=== PATIENT | male | born 1935 | race Caucasian/White ===

== ENCOUNTER 2024-11-13 15:39 | Observation (INO) | payer MEDICARE, SELFPAY ==
[2024-11-13] VITALS (11 sets, daily range): BP systolic 142–193; BP diastolic 71–101; BMI 23.3
[2024-11-13 09:57] LABS: ALT (SGPT) 18 U/L (0-50); AST (SGOT) 24 U/L (17-59); Albumin 4.9 g/dl (3.5-5.0); Alkaline Phosphatase 77 U/L (38-126); Blood Urea Nitrogen 13 mg/dl (9-20); Calcium 9.5 mg/dl (8.4-10.2); Carbon Dioxide 26 mmol/L (22-30); Chloride 98 mmol/L (98-107); Glucose 110 mg/dl (70-99); Potassium 4.1 mmol/L (3.5-5.1); Sodium 137 mmol/L (135-145); Total Bilirubin 0.6 mg/dl (0.2-1.3); Total Protein 7.7 g/dl (6.3-8.2); eGFR > 60.00
[2024-11-13 09:58] LABS: % Basophils 0.5 % (0-2); % Eosinophils 2.9 % (0-6); % Immature Granulocytes 0.4 % (0-0.5); % Lymphocytes 23.9 % (20.5-51.1); % Monocytes 12.4 % (1.7-9.3); % Neutrophils 59.9 % (42.2-75.2); Absolute Eosinophils 0.2 10^3/uL (0-0.7); Absolute Lymphocytes 1.3 10^3/uL (1.2-3.4); Absolute Monocytes 0.7 10^3/uL (0.1-0.6); Absolute Neutrophils 3.3 10^3/uL (1.4-6.5); Hematocrit 41.3 % (39.0-52.0); Hemoglobin 14.3 g/dL (13.0-18.0); Mean Corp Hgb Conc. 34.6 g/dL (33.0-37.0); Mean Corpuscular Hgb 32.8 pg (27.0-31.0); Mean Corpuscular Volume 94.7 fL (80.0-94.0); Mean Platelet Volume 8.4 fL (7.4-10.4); Nucleated Red Blood Cells % 0 % (-); Platelet Count 186 10^3/uL (130-400); Red Blood Cell Count 4.36 10^6/uL (4.70-6.10); Red Cell Dist. Width 12.2 % (11.5-14.5); White Blood Cell Count 5.5 10^3/uL (4.8-10.8)
--- NOTE | 2024-11-13 10:13 | ED.CVA ---
History of Present Illness
General
Chief Complaint: CVA/TIA Symptoms
Source: patient
Time Seen by Provider: 11/13/24 09:59
Onset of Stroke Symptoms
Onset of symptoms known: Yes
Date of onset of symptoms: 11/13/24
Time of onset of symptoms: 07:45
History of Present Illness
History of Present Illness:
89-year-old male presents to the emergency room complaining of having about a 5 to 10-minute episode of right arm weakness, tingling and slurred speech. Patient is receiving physical therapy at [facility] after having a left shoulder replacement
surgery. When he recognized something was not right he went to the nurse who documented that he had slurred speech. Patient feels like his symptoms have resolved. No history of similar. Patient does take a baby aspirin a day. He denies headache.
Phy Exam
Physical Exam
Physical Exam:
General: Awake, Alert, Oriented X3. No acute distress.
Vitals: unremarkable
Head: Atraumatic
Eyes: Pupils equal, EOMI
Throat: Airway intact, no exudates
Neck: Trachea midline
Lungs: Clear and equal b/l
Heart: Regular rate, no murmurs
Abd: Soft, Nontender, No pulsatile mass
Neuro: Cranial nerves intact, muscle strength equal bilaterally, cerebellar exam normal
Skin: Warm, dry, no rash
Extremities: pulses equal b/l, no edema
Course
Orders/Labs/Results
Orders:
Orders
11/13/24 09:36
Complete Blood Count/With Diff Urgent
Comprehensive Metabolic Panel Urgent
11/13/24 10:09
Electrocardiogram (*1) Stat
Reason for Study: Other
Other Reason for Exam: neuro symptoms
CT Head & Neck Angio W/wo IV Urgent
Comment:
Reason For Exam: episode of r arm weakness, slurred speech
EKG- Treatment ONCE
11/13/24 15:26
MRI Brain [MR Brain Without Contrast] Routine
Comment:
Reason For Exam: TIA
OK for patient to be off Cardiac Monitoring for MRI: No
Recent pill cam endoscopy?: No
11/13/24 15:34
Admit/Transfer Patient As Directed
Co-Sign Provider:
Level of Care: Observation services
Assign to:: Telemetry
Physician / Group: jorge
Diagnosis: TIA
Reason for Telemetry: CVA/TIA
Date to Stop Telemetry: 11/16/24
Time to Stop Telemetry: 11:00
11/13/24 15:35
Code Status As Directed
Resuscitation Status: Full Code
PRN Pain Medication Management As Directed
May give lesser potent ordered pain med per pt: Yes
preference::
Protocol:: Medication orders for pain may be administered in a
manner that supports deferring to patient preference
when the pt is:
- Requesting an ordered lesser potent pain medication.
Least to most potent pain medications are defined
as: acetaminophen < NSAID < tramadol < opioids
(morphine, oxycodone, hydromorphone).
- Requesting a lesser dose of the same medication IF
ORDERED.
- Requesting a less intrusive route of administration
if both routes are prescribed by the provider (PO <
IV).
11/16/24 11:00
DC Protocol for Telemetry ONCE
Abnormal Lab Results
11/13/24
09:36
RBC 4.36 L 10^6/uL
(4.70-6.10)
MCV 94.7 H fL
(80.0-94.0)
MCH 32.8 H pg
(27.0-31.0)
Absolute Monos (auto) 0.7 H 10^3/uL
(0.1-0.6)
Monocytes % 12.4 H %
(1.7-9.3)
Glucose 110 H mg/dl
(70-99)
11/13/24 09:36
11/13/24 09:36
Vital Signs
Initial and Last Documented VS:
Initial Vital Signs
Temp Pulse Resp BP Pulse Ox
97.9 F 94 16 146/85 98
11/13/24 09:24 11/13/24 09:24 11/13/24 09:24 11/13/24 09:24 11/13/24 09:24
Last Documented Vital Signs
Temp Pulse Resp BP Pulse Ox
97.9 F 78 19 193/85 93
11/13/24 09:24 11/13/24 14:45 11/13/24 14:45 11/13/24 14:00 11/13/24 13:15
MDM/Problems Addressed
Differential Diagnosis Includes:
TIA, CVA, seizure,
MDM/Problems Addressed:
Patient has a nonfocal neurologic exam here. NIH score 0. CVA workup initiated including CT CTA which are unremarkable. Neurology evaluation obtained. Allergy recommends hospitalization for MRI, blood pressure management
Chronic conditions affecting care: HTN
*Radiology
Radiology exam reviewed: radiology read reviewed
*Pulse Oximetry
Patient hypoxic: no
*EKG
Interpreted by ED Provider?: Yes
Interpretation: normal
Comparison EKG: no comparison EKG present
Heart Rate: 72
Rate: normal
Rhythm: sinus
[place]: normal axis
Interval: normal interval
QRS Pattern: normal QRS
Ischemia: no ischemia
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
Rate: normal
Interpretation: normal
Rhythm: sinus
*Critical Care Note
Total Time (30-74mins, 75-104mins- exclusive of procedures): Not Applicable
ED Attending Note
-
Portions of this chart may have been created with voice recognition software.� Occasional wrong word or��sound alike� substitutions may have occurred due to the inherent limitations of voice recognition software.
Discharge Plan
Departure
Patient Disposition: Admit
Date of Disposition: 11/13/24
Time of Disposition: 15:15
Admit to: Telemetry
Presentation/result/management discussed w/ accepting MD/DO: Hospitalist
Condition: Fair
Discharge Problem:
Brain TIA
Interventions
Interventions:
*Risk Screen - Suicide Last Done: 11/13/24 09:27
*General Assessment Last Done: 11/13/24 11:05
*Neglect/Abuse Screening Last Done: 11/13/24 09:27
ED- Fall Risk Assessment Last Done: 11/13/24 11:05
*ED COVID-19 Vaccine History Last Done: 11/13/24 11:05
ED- Pulmonary Assessment Last Done: 11/13/24 09:56
ED- Neurological Assessment Last Done: 11/13/24 09:56
ED- Cardiac Assessment Last Done: 11/13/24 09:56
ED Swallowing Screen Last Done: 11/13/24 11:37
--- NOTE | 2024-11-13 14:17 | CON.NEURO ---
Consultation
Order
Date of Consultation: 11/13/24
Requesting Provider: Imer Park DO
Reason for Consult: Stroke
Neurology Consultation Note.
HPI: This is an 89-year-old RH man who presented to [facility] on 11/13/2024 with transient motor and speech deficits. This morning, the patient experienced sudden inability to close his right hand and noted his voice was 'dreary' and
louder than usual. He denies difficulties with holding utensils or having slurred speech. The patient reports no associated headache, sensory or vision changes, or new balance issues. He denies any problems with his right leg.
EMS VS: Blood pressure 189/101, 93, glucose�176
ER VS: 146/85-193/85, 94, afebrile
EKG: NSR, QTc Int : 435 ms
PDMP: Oxycodone Hcl (Ir) 5 Mg28 tablets filled in on 09/20/2024
Oxycodone Hcl (Ir) 5 Mg
Labs: Glucose�110, normal sodium, creatinine, WBCs
CT head wo contrast-left vertebral artery 70% stenosis
CTA head/neck-14 mm soft tissue density in the upper portion of the right hilum, severe left vertebral artery stenosis
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
PSH: Left reverse shoulder arthroplasty
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
FH: Father�coronary artery disease,
All:NKDA
ROS: Constitutional: Negative. Negative for chills, fever and unexpected weight change.
HENT: Positive for hearing impairment
Eyes: Negative. Negative for photophobia, pain and visual disturbance.
Respiratory: Negative for cough, choking and shortness of breath.
Cardiovascular: Negative for chest pain, palpitations and leg swelling.
Gastrointestinal: Negative for abdominal pain and vomiting.
Endocrine: Negative. Negative for cold intolerance.
Genitourinary: Negative for dysuria, flank pain and urgency.
Musculoskeletal: Positive for arthralgias
Skin: Negative for rash.
Allergic/Immunologic: Negative. Negative for immunocompromised state.
Neurological: Positive for chronic imbalance, transient right hand weakness and dysphonia
General: Well developed. In no acute distress.
Cardio: Regular rate and rhythm without murmur. Extremities are without cyanosis or edema.
Neuro:
Mental Status: Alert, oriented to person, place, and date. Impaired attention and recall. Good fund of knowledge. Follows complex requests across the midline. Comprehension, naming, and repetition intact. Immediate and delayed recall 3/3.
Cranial Nerves: Pupils are equally round and reactive to light. EOMs full. Visual head full to confrontation. No ptosis. No nystagmus. V1-V3 intact to light touch and pinprick bilaterally, symmetric. Face symmetric. Poor hearing AU. The
palate elevated well. SCMs and traps 5/5. Tongue midline. No dysarthria.
Motor: Increased motor tone. No pronator or arm drift. Strength 5/5 throughout. No clonus.
Reflexes: Bilateral grasp
Sensory: Normal vibration at the ankles
Coordination: Reduced fine finger movements. No dysmetria or tremor.
Gait: deferred
Assessment and Plan:
I. TIA
II. Parkinsonism with autonomic dysfunction
III. Encephalopathy (vascular, neurodegenerative)
IV. Hilar adenopathy vs neoplasm
V. Severe left vertebral artery stenosis
-Continue Telemetry monitoring
-Fall precautions
-Cautious lowering of BP by approximately 15 % during the first 24 hours is SBP >220 mmHg or diastolic blood pressure >120 mmHg
-DAPT for 3 weeks
-Lipitor 40 mg nightly
-PT
-Brain MRI without ashley
-TTE
-DVT prophylaxis.
I personally reviewed all radiology and labs along with past medical records pertinent to current medical problems. Total time spent in patient care is 60 minutes.
Thank you for allowing us to participate in the care of this patient. We will continue to follow. Please do not hesitate to contact us with any questions or concerns.
Subjective/Objective
Subjective Data
Date of Service: November 13, 2024
Objective Data
Vital Signs
Temp Pulse Resp BP Pulse Ox
36.6 C 70 16 173/91 93
11/13/24 09:24 11/13/24 13:15 11/13/24 13:15 11/13/24 13:00 11/13/24 13:15
Lab Results
11/13/24 09:36
11/13/24 09:36
Sodium 137 mmol/L (135-145) 11/13/24 09:36
Potassium 4.1 mmol/L (3.5-5.1) 11/13/24 09:36
BUN 13 mg/dl (9-20) 11/13/24 09:36
Glucose 110 mg/dl (70-99) H 11/13/24 09:36
Calcium 9.5 mg/dl (8.4-10.2) 11/13/24 09:36
Patient Allergies
No Known Allergies Allergy (Unverified 03/02/16 15:10)
Vital Signs and Labs
-
Vital Signs and Labs:
Vital Signs
Temp Pulse Resp BP Pulse Ox
36.6 C 70 16 173/91 93
11/13/24 09:24 11/13/24 13:15 11/13/24 13:15 11/13/24 13:00 11/13/24 13:15
Lab Results
11/13/24 09:36
11/13/24 09:36
Sodium 137 mmol/L (135-145) 11/13/24 09:36
Potassium 4.1 mmol/L (3.5-5.1) 11/13/24 09:36
BUN 13 mg/dl (9-20) 11/13/24 09:36
Glucose 110 mg/dl (70-99) H 11/13/24 09:36
Calcium 9.5 mg/dl (8.4-10.2) 11/13/24:36
--- NOTE | 2024-11-13 15:13 | HPS.HSE ---
Family Physician
-
Family Physician: Angi Redd
Chief Complaint
-
Right arm weakness, slurred speech
History of Present Illness
89-year-old male with manage medical history for colon polyp, hemorrhoids, hypertension presents to the emergency room complaining of having about a 5 to 10-minute episode of right arm weakness, tingling and slurred speech. Patient is receiving
physical therapy at [facility] after having a left shoulder replacement surgery. Patient feels like his symptoms have resolved. Patient denied headache, dizziness. Patient denied blurry vision. Patient denied chest pain or short of breath.
Patient denied abdominal pain, nausea, vomiting or diarrhea. Patient denied dysuria hematuria.
His blood pressure medications were stopped in August due to hypotension.
Patient was noted hypotensive in ER. CT with impression of chest demonstrates a 14 mm soft tissue density in the upper portion of the right hilum which is only partially imaged on image 136 series 501. This may be adenopathy or neoplasm and, if
clinically indicated, could be further evaluated with contrast-enhanced CT of the chest.no evidence of major intracranial branch occlusion or significant intracranial stenosis.,Moderate partially calcific atherosclerotic plaque at both carotid
bifurcations is associated with less than 50% stenosis bilaterally. Small volume partially calcific atherosclerotic plaque at the cavernous and supraclinoid portions of both internal carotid arteries is not associated with significant stenosis.
There is large volume partially calcific atherosclerotic plaque at the intracranial portion of the left vertebral artery associated with greater than 70% stenosis. There is moderate diffuse cortical atrophy with mild-moderate nonspecific white
matter changes as described above.
Admitting for further manage
Medical History
Past Medical History
Past Medical History: Reports Other
Additional Past Medical History:
Hypertension
Colon polyps
Hemorrhoids
Past Surgical History: Reports Other
Additional Past Surgical History:
Hernia repair
Left shoulder replaced
Social History
Tobacco: Non-smoker
Alcohol: None
Drug: None
Living: Assisted Living
Family History
Family History: Not pertinent
Allergies / Home Medications
Allergies reflects when Allergies were last updated in [facility].
Home Medications with original date entered in [facility]
Allergy/Medication List:
Allergies
Allergy/AdvReac Type Severity Reaction Status Date / Time
No Known Allergies Allergy Unverified 03/02/16 15:10
Review of Systems
-
Constitutional: Reports No Symptoms
EENT: Reports No Symptoms
Respiratory: Reports No Symptoms
Cardiac: Reports No Symptoms
Abdomen/GI: Reports No Symptoms
: Reports No Symptoms
Musculoskeletal: Reports Other (decreased moment of left UE due to left shoulder surgery)
Skin: Reports No Symptoms
Neurological: Reports No Symptoms
Endocrine: Reports No Symptoms
Hematologic/Lymphatic: Reports No Symptoms
Psych: Reports No Symptoms
Physical Exam
Vital Signs
Vital Signs
Temp Pulse Resp BP Pulse Ox
97.9 F 78 19 193/85 93
11/13/24 09:24 11/13/24 14:45 11/13/24 14:45 11/13/24 14:00 11/13/24 13:15
Physical Exam
General: Well Developed, Well Nourished and No Apparent Distress
HEENT: NormoCephalic, Moist mucous membranes and Atraumatic
Respiratory: Clear
Cardiac: S1/S2 and Regular Rhythm; No Murmur or Rub
GI: Soft, Non Tender, Non Distended and Normal Bowel Sounds; No Organomegaly
Rectal: Deferred by Provider
Musculoskeletal: No Clubbing, No Cyanosis and Other (decreased ROM due to left shoulder replacement)
Skin: No Rash
Neuro: AO x 3 and Nonfocal/grossly intact
Psych: Calm
Laboratory Results
-
11/13/24 09:36
11/13/24 09:36
Laboratory Results
Total Bilirubin 0.6 mg/dl (0.2-1.3) 11/13/24 09:36
AST 24 U/L (17-59) 11/13/24 09:36
ALT 18 U/L (0-50) 11/13/24 09:36
Alkaline Phosphatase 77 U/L (38-126) 11/13/24 09:36
Data Reviewed
-
CT Scan: Report Reviewed by me
Lab Data: Labs Reviewed by me
Impression/Plan
-
# Hypertension emergency
-His blood pressure improved with labetalol
-Continue to monitor vital sign
# Slurred speech/right arm weakness concern for TIA
-MRI of the head
-Continue aspirin
-Statin continued
-Obtain A1c, lipid profile
-obtain MRI
-PT/OT consult
-neurology consulted
-CTA with the impression of 4 mm soft tissue density in the upper portion of the right hilum which is only partially imaged on image 136 series 501. This may be adenopathy or neoplasm and, if clinically indicated, could be further evaluated with
contrast-enhanced CT of the chest. moderate partially calcific atherosclerotic plaque at both carotid bifurcations is associated with less than 50% stenosis bilaterally.nmall volume partially calcific atherosclerotic plaque at the cavernous and
supraclinoid portions of both internal carotid arteries is not associated with significant stenosis. There is large volume partially calcific atherosclerotic plaque at the intracranial portion of the left vertebral artery associated with greater
than 70% stenosis. There is moderate diffuse cortical atrophy with mild-moderate nonspecific white matter changes as described above.
#soft tissue density in the upper portion of right hilum
-obtain CT in 24 hours.
# Hyperlipidemia
-Statin
# BPH
-Flomax continued
#recent left shoulder surgery
# DVT prophylaxis
-SCDs
# CODE STATUS
-Full code
--- NOTE | 2024-11-13 15:58 | W.PN.UPDATE ---
Update Note
Progress Note Update
This is an addendum to H&P written by YARON Morse
I saw and examined the patient.
The GALLEY COOK's note was reviewed and I agree with the note.
Comment:
Mr. Warren Bridges is a 89 yo man with hx essential HTN, recent left shoulder replacement surgery presents to the ER with 5-10 minute episode of right arm weakness, tingling and slurred speech. Symptoms resolved upon arrival to the ER.
Triage VS: T 97.9, P 78, RR 19, BP 193/85, SpO2 93%
On exam patient is AAO x 3, conversant; left arm with limited mobility (post-op) otherwise no focal neurological deficits
LABS: WBC 5.5, Hg 14.3, PLT 186, Na 137, K+ 4.1, Cl 98, CO2 26, BUN 13, Cr 0.7, liver enzymes WNL
CT HEAD
IMPRESSION:
1).Imaging of the upper portion of the chest demonstrates a 14 mm soft tissue density in the upper portion of the right hilum which is only partially imaged on image 136 series 501. This may be adenopathy or neoplasm and, if clinically indicated,
could be further evaluated with contrast-enhanced CT of the chest
2). There is no evidence of major intracranial branch occlusion or significant intracranial stenosis
3). Moderate partially calcific atherosclerotic plaque at both carotid bifurcations is associated with less than 50% stenosis bilaterally.
4). Small volume partially calcific atherosclerotic plaque at the cavernous and supraclinoid portions of both internal carotid arteries is not associated with significant stenosis
5). There is large volume partially calcific atherosclerotic plaque at the intracranial portion of the left vertebral artery associated with greater than 70% stenosis
6). There is moderate diffuse cortical atrophy with mild-moderate nonspecific white matter changes as described above.
Transient RUE weakness/tingling and slurred speech
Concern for TIA
-admit to observation
-continue JAR FILLER asa/statin (confirmed no Plavix with Neurology)
-MRI
-appreciate neurology consult
-PT/OT
Essential HTN
-patient's BP meds were stopped in August, will resume Lisinopril 5mg daily for now (he thinks he was on Lisinopril 20mg PO QD and another mediation which were stopped after a fall)
Abnormal CT with finding of 14mm soft tissue density upper portion right hilum
-team to order CT Chest tomorrow (24 hours post current contrast administration)
-patient updated on these findings
[2024-11-13] MEDS: ZESTRIL 5 MG PO (16:36)
[2024-11-13 17:27] LABS: HDL Cholesterol 42 mg/dl; LDL Cholesterol, Calculated 88 mg/dl; Total Cholesterol 157 mg/dl (50-199); Triglyceride 138 mg/dl (10-149); Very Low Density Lipoprotein 27 mg/dl (0-30)
[2024-11-13] MEDS: PLAVIX 75 MG PO (18:01)
[2024-11-13] MEDS: FLOMAX 0.4 MG PO (21:03)
[2024-11-13] MEDS: XALATAN OPHTHALMIC SOLUTION 1 DROP BOTH EYES (21:03)
[2024-11-13] MEDS: PRAVACHOL 20 MG PO (21:04)
[2024-11-13] MEDS: SODIUM CHLORIDE 1 GRAM PO (21:04)
[2024-11-13] MEDS: SENOKOT 8.6 MG PO (21:04)
[2024-11-13] MEDS: NIASPAN TIME RELEASE 500 MG PO (21:31)
[2024-11-14 03:42] VITALS: BP 136/70
[2024-11-14 07:12] VITALS: BP 135/73
[2024-11-14 08:05] LABS: HDL Cholesterol 38 mg/dl; LDL Cholesterol, Calculated 76 mg/dl; Total Cholesterol 146 mg/dl (50-199); Triglyceride 160 mg/dl (10-149); Very Low Density Lipoprotein 32 mg/dl (0-30)
[2024-11-14] MEDS: ZESTRIL 5 MG PO (08:06)
[2024-11-14] MEDS: OCUVITE SOFTGEL 1 CAP PO (08:07)
[2024-11-14] MEDS: LOW STRENGTH ASPIRIN 81 MG PO (08:07)
[2024-11-14] MEDS: PLAVIX 75 MG PO (08:07)
[2024-11-14] MEDS: SODIUM CHLORIDE 1 GRAM PO (08:07)
--- NOTE | 2024-11-14 08:34 | W.PN.HOSP.TC ---
Today's Communication/Plan
-
Discharge today
Assessment / Plan
Assessment / Plan
Speech/language/cognitive evaluation for 402-1 Warren Bridges: Patient exhibits mild expressive/receptive language impairments and mild cognitive communication impairments characterized by difficulties in the following areas: STM, Complex problem
solving skills, executive functioning skills, Word finding, verbal repetition, and processing speed. Patient endorsed history of mild word finding/memory deficits at baseline over past several years. Recommend ST services to follow briefly at the
acute care level, monitor MRI results. Consider Outpatient ST services should MRI indicate acute intracranial abnormality.
#Transient ischemic attack
Brain MRI negative
Appreciate neurology input, recommend aspirin/Plavix for 21 days, then just aspirin
LDL 76, recommend changing atorvastatin 40 mg at bedtime
Hemoglobin A1c normal
PT recommends home care
Stable for discharge back to [facility]
#Hypertensive emergency
Blood pressure as high as 177/101 in ER
Blood pressure currently 104/58 on lisinopril 5 mg daily
Discussed with son, who states patient has syncope when his blood pressures this low
Discontinue lisinopril due to concerns of syncope
#Cognitive impairment
Recommend outpatient neuropsychiatric testing for dementia
#BPH
Continue Flomax
Physical Exam
General: No acute distress
HEENT: Normocephalic, Atraumatic, EOMI, MMM
Respiratory: Clear to Auscultation bilaterally
Cardiac: Normal S1/S2, Regular Rate and Rhythm
GI: Soft, Nontender, Nondistended, Normal Bowel Sounds
Extremities: No Clubbing, Cyanosis, or Edema
Neuro: Nonfocal/Grossly Intact
Psych: Calm, Cooperative
Derm: No Visible lesions
Anticipated Discharge: Today
Subjective/Interval History
-
Date of Service: November 14, 2024
No recurrence of right upper extremity weakness/numbness/tingling. No recurrence of dysarthria. No fever, no vomiting.
Objective Data
-
Vital Signs:
Vital Signs
Temp Pulse Resp BP Pulse Ox
98 F 66 18 135/73 96
11/14/24 07:12 11/14/24 08:06 11/14/24 07:12 11/14/24 08:06 11/14/24 07:12
I&O
11/13/24 11/14/24 11/15/24
06:59 06:59 06:59
Intake Total 480 / 480
Output Total 1175 / 1175
Balance -695 / -695
[2024-11-14 10:05] LABS: Glycohemoglobin (HgbA1c) 5.2 % (4.0-5.6)
--- NOTE | 2024-11-14 10:12 | PTOTSP ---
SPEECH THERAPY SPEECH/LANGUAGE/COGNITIVE COMMUNICATION EVALUATION:
Patient exhibits mild expressive/receptive language impairments and mild cognitive communication impairments characterized by difficulties in the following areas: STM, Complex problem solving skills, executive functioning skills, Word finding,
verbal repetition, and processing speed. MOCA version 8.1 was administered; Patient achieved a score of 22/30, indicating below normal level (greater than or equal to 26/30). Subscores as follows: Visuospatial/Executive functionin/5. Naming:
12/15. Attention: 03/20. Language: 10/17. Abstraction: 11/16. Delayed Recall: 11/19. Orientation: 02/17. Patient endorsed history of mild word finding/memory deficits at baseline over past several years. MRI pending at this time. Recommend ST services to follow
briefly at the acute care level, monitor MRI results. Consider Outpatient ST services should MRI indicate acute intracranial abnormality.
[2024-11-14 11:07] VITALS: BP 107/75; O2SAT 98
[2024-11-14 11:27] VITALS: BP 107/75; PULSE 94; O2SAT 98
[2024-11-14 11:36] VITALS: BP 104/58
--- NOTE | 2024-11-14 14:58 | W.PN.NEURO.1 ---
Today's Communication / Plan
-
.
Subjective/Objective
Subjective Data
Date of Service: November 14, 2024
Neurology follow-up note
Mr. Bridges reports no complaints. No recurrent right hand symptoms since admission.
Blood pressure has normalized.
Brain MRI showed no acute abnormalities, severe white matter leukoaraiosis in both cerebral hemispheres. Mild to moderate cerebral and cerebellar volume loss.
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
PSH: Left reverse shoulder arthroplasty
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
FH: Father�coronary artery disease,
All:NKDA
ROS: Constitutional: Negative. Negative for chills, fever and unexpected weight change.
HENT: Positive for hearing impairment
Eyes: Negative. Negative for photophobia, pain and visual disturbance.
Respiratory: Negative for cough, choking and shortness of breath.
Cardiovascular: Negative for chest pain, palpitations and leg swelling.
Gastrointestinal: Negative for abdominal pain and vomiting.
Endocrine: Negative. Negative for cold intolerance.
Genitourinary: Negative for dysuria, flank pain and urgency.
Musculoskeletal: Positive for arthralgias
Skin: Negative for rash.
Allergic/Immunologic: Negative. Negative for immunocompromised state.
Neurological: Positive for chronic imbalance, transient right hand weakness and dysphonia
General: Well developed. In no acute distress.
Cardio: Regular rate and rhythm without murmur. Extremities are without cyanosis or edema.
Neuro:
Mental Status: Alert, oriented to person, place, and date. Impaired attention and recall. Good fund of knowledge. Follows complex requests across the midline. Comprehension, naming, and repetition intact. Immediate and delayed recall 3/3.
Cranial Nerves: Pupils are equally round and reactive to light. EOMs full. Visual head full to confrontation. No ptosis. No nystagmus. V1-V3 intact to light touch and pinprick bilaterally, symmetric. Face symmetric. Poor hearing AU. The
palate elevated well. SCMs and traps 5/5. Tongue midline. No dysarthria.
Motor: Increased motor tone. No pronator or arm drift. Strength 5/5 throughout. No clonus.
Reflexes: Bilateral grasp
Sensory: Normal vibration at the ankles
Coordination: Reduced fine finger movements. No dysmetria or tremor.
Gait: deferred
Assessment and Plan:
I. Hypertensive emergency, resolved. TIA
II. Parkinsonism with autonomic dysfunction
III. Encephalopathy (vascular, neurodegenerative)
IV. Hilar adenopathy vs neoplasm
V. Severe left vertebral artery stenosis
-Continue Telemetry monitoring
-Fall precautions
-DAPT for 3 weeks
-Lipitor 40 mg nightly
-PT
-DVT prophylaxis.
-Outpatient neurology follow-up
I personally reviewed all radiology and labs along with past medical records pertinent to current medical problems. Total time spent in patient care is 37 minutes.
Thank you for allowing us to participate in the care of this patient. Please do not hesitate to contact us with any questions or concern
Severe white matter leukoaraiosis in both cerebral hemispheres.
3. Mild to moderate cerebral and cerebellar volume loss.
Objective Data
Vital Signs
Temp Pulse Resp BP Pulse Ox
36.6 C 98 20 104/58 98
11/14/24 11:36 11/14/24 11:36 11/14/24 11:36 11/14/24 11:36 11/14/24 11:36
Lab Results
11/13/24 09:36
11/13/24 09:36
Sodium 137 mmol/L (135-145) 11/13/24 09:36
Potassium 4.1 mmol/L (3.5-5.1) 11/13/24 09:36
BUN 13 mg/dl (9-20) 11/13/24 09:36
Glucose 110 mg/dl (70-99) H 11/13/24 09:36
Calcium 9.5 mg/dl (8.4-10.2) 11/13/24 09:36
LDL Cholesterol, Calc 76 mg/dl 11/14/24 06:08
Patient Allergies
No Known Allergies Allergy (Unverified 03/02/16 15:10)
[2024-11-14 15:49] VITALS: BP 158/80
--- NOTE | 2024-11-14 15:51 | W.DCSUMMARY ---
Discharge Summary
Discharge Data
Date of Admission: 11/13/24
Date of Discharge: 11/14/24
-
Pending Results: No
Hospital Course
Discharge diagnosis:
Transient ischemic attack
Left vertebral artery stenosis
Hypertensive emergency
Labile hypertension
Cognitive impairment suspicious for dementia
Benign prostatic hypertrophy
Consults: Neurology
Head/neck CTA:
1).Imaging of the upper portion of the chest demonstrates a 14 mm soft tissue density in the upper portion of the right hilum which is only partially imaged on image 136 series 501. This may be adenopathy or neoplasm and, if clinically indicated,
could be further evaluated with contrast-enhanced CT of the chest
2). There is no evidence of major intracranial branch occlusion or significant intracranial stenosis
3). Moderate partially calcific atherosclerotic plaque at both carotid bifurcations is associated with less than 50% stenosis bilaterally.
4). Small volume partially calcific atherosclerotic plaque at the cavernous and supraclinoid portions of both internal carotid arteries is not associated with significant stenosis
5). There is large volume partially calcific atherosclerotic plaque at the intracranial portion of the left vertebral artery associated with greater than 70% stenosis
6). There is moderate diffuse cortical atrophy with mild-moderate nonspecific white matter changes as described above.
Brain MRI:
1. No MRI evidence for acute infarct or intracranial hemorrhage.
2. Severe white matter leukoaraiosis in both cerebral hemispheres.
3. Mild to moderate cerebral and cerebellar volume loss.
Echo:
LV ejection fraction is 65-70%. No regional wall motion abnormalities are seen.
Normal right ventricular size and function.
Mild aortic stenosis; peak/mean gradients are 17/10 mmHg, calculated RANGEL is 1.9
cm2.
Mildly dilated aortic root (Sinus of Valsalva measures 4.0 cm).
Hospital course:
89-year-old male with a past medical history of labile hypertension, BPH, and hyperlipidemia was admitted for transient right upper extremity weakness/paresthesia and dysarthria. Patient was seen in conjunction with neurology. Brain MRI was
negative for acute CVA. He was also found to be hypertensive with a blood pressure as high as 177/101 in the emergency room. He received lisinopril 5 mg daily, his blood pressure improved to 104/58 on the day of discharge. Patient's son reports
that patient will have syncope when his blood pressure is this low. Therefore it was decided to keep him off of any blood pressure medications.
Patient did not have any recurrence of his symptoms. Neurology recommends aspirin and Plavix for 21 days, then just aspirin. Patient's LDL 76. Since his goal LDL is less than 70, his statin was changed to atorvastatin 40 mg at bedtime. He was
seen in conjunction with PT, who recommended home PT. He was provided with a prescription for outpatient PT as he declined home visiting nurses.
Patient was seen in conjunction with OT, who noticed cognitive impairment suspicious for dementia. He needs to follow-up with neuropsychiatry in the office for cognitive testing.
Patient is medically stable for discharge. He needs to follow-up with his primary care doctor in 1 week, and neuropsychiatry in the office in 2-3 weeks.
Disposition: Home self care, declined home VN
Discharge planning: Required 42
Discharge Plan
-
Patient Disposition: Home with Home Care
Discharge Diagnosis/Procedures: Transient ischemic attack, hypertensive urgency, cognitive impairment, severe left vertebral artery stenosis
Condition: Good
Diet: Low Fat and Low Cholesterol
Activity: As tolerated
Activity Restrictions/Additional Instructions:
Recommend Plavix 75 mg daily for 19 more days, to complete a 21-day course.
Recommend changing simvastatin to a atorvastatin since your LDL is 76, goal LDL is less than 70.
Please follow-up with Dr. Colvin for neuropsychiatric testing for cognitive impairment.
Follow-up with your primary care doctor in 1 week.
Referrals:
John Colvin, CHERIY [Specified Professional Personl] - in two to three weeks
Angi Redd MD [Family Provider] - in one week
Prescriptions:
New
clopidogrel 75 mg Tablet
75 mg PO DAILY 19 Days Qty: 19 0RF
atorvastatin 40 mg tablet
40 mg PO QPM Qty: 30 0RF
Continued
multivitamin Tablet
1 tab PO DAILY
latanoprost 0.005 % drops
1 drp BOTH EYES HS
sennosides [senna] 8.6 mg tablet
8.6 mg PO HS
aspirin 81 mg tablet,delayed release (DR/EC)
81 mg PO DAILY
acetaminophen 500 mg tablet
1,000 mg PO TID
tamsulosin 0.4 mg capsule
0.4 mg PO HS
niacin 500 mg tablet
500 mg PO HS
cholecalciferol (vitamin D3) [Vitamin D3] 25 mcg (1,000 unit) capsule
25 mcg PO DAILY
coenzyme Q10 100 mg capsule
100 mg PO DAILY
PreserVision Lutein 226-90-0.8-5 mg capsule
1 cap PO DAILY
sodium chloride 1,000 mg tablet,soluble
1,000 mg PO BID
Discontinued
pravastatin 20 mg tablet
20 mg PO HS
Discharge Orders:
Discharge Patient (As Directed); Ordered 11/14/24
Ordered By: Magdy Varma
Discharge Date and Time
Discharge Date/Time: 11/14/24 17:21
Print Language: VIET[place]ESE
--- NOTE | 2024-11-14 16:10 | CM ---
Alert awake oriented patient who lives [facility] for respite care. He is independent in all activities of daily living.He uses a cane He was offered VN he declined need.Spoke with his son who is a doctor and he will drive him home.Patrick letter
given explained. Copy given Pt did not sign copy.
No VN / [facility] history
Pharmacy [facility]
PCP DR Velasquez
PLAN Home Declined VN
== END 2024-11-14 17:21 | disposition home or self-care (01) ==
LOC: 4 EAST ACU 15:39
PROVIDERS: Emergency Medicine; Registered Nurse; ADMITTING PHYSICIAN Student in an Organized Health Care Education/Training Program; ATTENDING PHYSICIAN Family Medicine; CONSULT PHYSICIAN Psychiatry & Neurology Neurology; EMERGENCY PHYSICIAN Emergency Medicine; FAMILY PHYSICIAN Internal Medicine
DX: I65.02 Occlusion and stenosis of left vertebral artery (principal); I16.0 Hypertensive urgency; R20.2 Paresthesia of skin; R53.1 Weakness; G31.9 Degenerative disease of nervous system, unspecified; R29.818 Other symptoms and signs involving the nervous system; G20.C Parkinsonism, unspecified; G90.9 Disorder of the autonomic nervous system, unspecified; G93.40 Encephalopathy, unspecified; F80.2 Mixed receptive-expressive language disorder; I10 Essential (primary) hypertension; I35.0 Nonrheumatic aortic (valve) stenosis; R59.0 Localized enlarged lymph nodes; E78.5 Hyperlipidemia, unspecified; N40.0 Benign prostatic hyperplasia without lower urinary tract symptoms; E55.9 Vitamin D deficiency, unspecified; R41.841 Cognitive communication deficit; R41.89 Other symptoms and signs involving cognitive functions and awareness; Z96.612 Presence of left artificial shoulder joint; Z79.82 Long term (current) use of aspirin; Z86.0100 Personal history of colon polyps, unspecified; Z87.19 Personal history of other diseases of the digestive system; Z82.49 Family history of ischemic heart disease and other diseases of the circulatory system
CPT/HCPCS: 70496; 70498; 70551; 80053; 80061; 83036; 85025; 87070; 92523; 93005; 93306; 97116; 97162; 97166; 99285; G0378; Q9967